=== PATIENT | female | born 1990 | race Two or more races ===

== ENCOUNTER 2021-01-28 20:50 | Emergency (ER) | payer OTHER ==
[~2021-01-28] VITALS: Ht 152.4 cm; Wt 72.7 kg
[2021-01-28] MEDS ORDERED: DOXYCYCLINE 100MG CAPSULE PO STA (22:55)
[2021-01-28] MEDS ORDERED: mupirocin 2% ointment 22GM TP STA (22:55)
[2021-01-28] MEDS ORDERED: hydrocortisone 1% cream 28gm TP ONE (22:55)
[2021-01-28] MEDS ORDERED: DOXY100C2 PO (23:04)
[2021-01-28 23:33] VITALS: BP 118/76
== END 2021-01-28 23:34 | disposition home or self-care (01) ==
LOC: ER 20:52
DX: L98.8 Other specified disorders of the skin and subcutaneous tissue (principal); Z88.8 Allergy status to other drugs, medicaments and biological substances
CPT/HCPCS: 99283; 99284